=== PATIENT | male | born 1975 | race African-American/Black ===

== ENCOUNTER 2018-07-05 07:32 | Emergency (ER) | payer MEDICAID ==
[~2018-07-05] VITALS: Ht 182.9 cm; Wt 87.0 kg
[2018-07-05 07:38] VITALS: BP 108/76
[2018-07-05] MEDS ORDERED: QUET100T4 PO (17:25)
== END 2018-07-05 09:06 | disposition home or self-care (01) ==
LOC: ED 09:00
DX: F10.120 Alcohol abuse with intoxication, uncomplicated (principal)
CPT/HCPCS: 99283

== ENCOUNTER 2019-02-06 | Emergency (ER) | payer MEDICAID ==
[~2019-02-06] VITALS: Ht 185.4 cm; Wt 93.9 kg
[~2019-02-06] MED LIST: QUET100T4 PO
[2019-02-06 00:02] VITALS: BP 126/74
== END 2019-02-06 01:27 | disposition home or self-care (01) ==
LOC: ED 00:13
DX: Z76.5 Malingerer [conscious simulation] (principal); F20.9 Schizophrenia, unspecified; F17.200 Nicotine dependence, unspecified, uncomplicated; F29 Unspecified psychosis not due to a substance or known physiological condition; Z72.9 Problem related to lifestyle, unspecified; Z75.9 Unspecified problem related to medical facilities and other health care; Z91.14 Patient's other noncompliance with medication regimen; Z63.8 Other specified problems related to primary support group
CPT/HCPCS: 99283; 99284